=== PATIENT | male | born 1985 | race African-American/Black ===

== ENCOUNTER → 2024-11-12 | Outpatient (CLI) | payer OTHER ==
--- NOTE | 2024-11-12 12:44 | HMCIMG ---
US SOFT TISSUE GROIN REASON: unspecified hernia. COMPARISON: None TECHNIQUE: Right groin ultrasound study was performed. FINDINGS: There is right inguinal hernia with fat and bowel content measuring 5.7 x 6.4 x 3.4 cm. IMPRESSION: Right inguinal hernia.
== END | disposition home or self-care (01) ==
LOC: RAH 11:33
PROVIDERS: ATTEND Physical Medicine & Rehabilitation
DX: K40.90 Unilateral inguinal hernia, without obstruction or gangrene, not specified as recurrent (principal); K46.9 Unspecified abdominal hernia without obstruction or gangrene
CPT/HCPCS: 76882